=== PATIENT | female | born 1945 | race African-American/Black ===

== ENCOUNTER 2018-08-19 16:51 | Inpatient (IN) | payer OTHER ==
[~2018-08-19] VITALS: Ht 170.2 cm; Wt 69.9 kg
[2018-08-19 16:55] VITALS: BP_SYST 101
[2018-08-19 18:25] LABS: BILIRUBIN,URINE 2+ (NEGATIVE); BLOOD, URINE NEGATIVE (NEGATIVE); CLARITY/URINE SL CLOUDY (CLEAR); COLOR,URINE YELLOW (YELLOW); GLUCOSE,URINE NEGATIVE (NEGATIVE); KETONES,URINE 1+ (NEGATIVE); LEUKOCYTE ESTERASE ,URINE NEGATIVE (NEGATIVE); NITRITE, URINE NEGATIVE (NEGATIVE); PH,URINE 5.5 (5.0-8.0); PROTEIN URINE TRACE (NEGATIVE)
[2018-08-19 18:33] LABS: BACTERIA,URINE MODERATE /HPF (None Seen); RBC,URINE 0-3 /HPF (0-3)
[2018-08-19] MEDS ORDERED: DIPHENHYDRAMINE INJ 50 MG/ML VIAL ONE (18:44)
[2018-08-19] MEDS ORDERED: METOCLOPRAMIDE HCL 10 MG/2 ML VIAL ONE (18:45)
[2018-08-19] MEDS ORDERED: NACL 0.9% 1,000 ML IV ONE (18:48)
[2018-08-19] MEDS ORDERED: KCL 20 mEq in D5/0.45NS 1000mL 1,000 ML IV ONE (19:00)
[2018-08-19] MEDS ORDERED: METOCLOPRAMIDE HCL 10 MG/2 ML VIAL IVP ONE (19:00)
[2018-08-19] MEDS ORDERED: DIPHENHYDRAMINE INJ 50 MG/ML VIAL IVP ONE (19:15)
[2018-08-19 19:17] LABS: BASOPHILS # (AUTO) 0.1 K/uL (0.0-0.2); BASOPHILS % (AUTO) 0.9 % (0.0-2.0); EOSINOPHILS % (AUTO) 0.1 % (0.0-4.0); HEMATOCRIT 38.1 % (36-48); HEMOGLOBIN 11.8 g/dL (12.0-16.0); LYMPHOCYTES # (AUTO) 1.1 K/uL (1.0-5.5); LYMPHOCYTES % (AUTO) 15.8 % (20.5-51.5); MEAN CORPUSCULAR HEMOGLOBIN 25 pg (27-31); MEAN CORPUSCULAR HGB CONC 31 % (32-36); MEAN CORPUSCULAR VOLUME 81 fL (79.0-98.0); MONOCYTES # (AUTO) 0.9 K/uL (0.0-1.0); MONOCYTES % (AUTO) 12.1 % (1.7-9.3); NEUTROPHILS % (AUTO) 71.1 % (40.0-70.0); RED BLOOD CELL COUNT(AUTO) 4.73 MIL/uL (4.2-6.2); WHITE BLOOD COUNT (AUTO) 7.1 K/uL (4.8-10.8)
[2018-08-19 19:22] LABS: PLATELET COUNT (AUTO) 295 K/uL (130-430)
[2018-08-19] MEDS ORDERED: ALL300 PO (19:31)
[2018-08-19] MEDS ORDERED: LIP10 PO (19:31)
[2018-08-19] MEDS ORDERED: GLU500 PO (19:31)
[2018-08-19] MEDS ORDERED: METO-540 (19:31)
[2018-08-19] MEDS ORDERED: APIX5TAB4 PO (19:31)
[2018-08-19] MEDS ORDERED: LOSA25TA3 PO (19:31)
[2018-08-19] MEDS ORDERED: LINA5TAB2 PO (19:31)
[2018-08-19 19:32] LABS: ANION GAP 17 (5-15); CALCIUM 9.9 mg/dL (8.4-11.0); CHLORIDE 98 mmol/L (98-107); CREATININE 1.28 mg/dL (0.55-1.30); GLUCOSE 96 mg/dL (70-99); POTASSIUM 4.2 mmol/L (3.5-5.1); SODIUM SERUM 135 mmol/L (136-145); UREA NITROGEN, BLOOD 25 mg/dL (8-21)
[2018-08-19 19:37] LABS: ALANINE AMINOTRANSFERASE 66 U/L (12-78); ALBUMIN 2.7 g/dL (3.4-4.8); ASPARTATE AMINOTRANSFERASE 77 U/L (10-37); LIPASE 227 U/L (73-393)
[2018-08-19 19:41] LABS: INR 1.1 (0.8-1.2)
[2018-08-19 19:59] VITALS: BP_SYST 138
[2018-08-19 20:03] VITALS: BP_SYST 138
[2018-08-19] MEDS ORDERED: ONDANSETRON HCL 4 MG/2 ML VIAL IVP PRN (21:45)
[2018-08-19] MEDS ORDERED: INSULIN REGULAR, HUMAN 100 UNITS/ML, 10 ML VIAL (novoLIN R) SUBCUT PRN (22:00)
[2018-08-19] MEDS ORDERED: PIPERACILLIN/TAZOBACTAM 3.375 GM/VIAL (ZOSYN) IV ONE (22:55)
[2018-08-19 23:12] VITALS: BP_SYST 137
[2018-08-19] MEDS: D5/0.45 NS 1,000 ML IV SCH (23:30)
[2018-08-20] MEDS: PIPERACILLIN/TAZO 3.375/DEX-IS 50 ML IV SCH ×4 (00:08→17:56)
[2018-08-20 06:24] LABS: ANION GAP 12 (5-15); CALCIUM 9.2 mg/dL (8.4-11.0); CHLORIDE 102 mmol/L (98-107); CREATININE 1.06 mg/dL (0.55-1.30); GLUCOSE 107 mg/dL (70-99); POTASSIUM 3.7 mmol/L (3.5-5.1); SODIUM SERUM 138 mmol/L (136-145); UREA NITROGEN, BLOOD 20 mg/dL (8-21)
[2018-08-20 06:48] LABS: HEMOGLOBIN 10.7 g/dL (12.0-16.0); MEAN CORPUSCULAR HEMOGLOBIN 26 pg (27-31); MEAN CORPUSCULAR HGB CONC 32 % (32-36); MEAN CORPUSCULAR VOLUME 81 fL (79.0-98.0); PLATELET COUNT (AUTO) 243 K/uL (130-430); RED BLOOD CELL COUNT(AUTO) 4.22 MIL/uL (4.2-6.2); RED CELL DISTRIBUTION WIDTH 22.1 % (9.0-15.0); WHITE BLOOD COUNT (AUTO) 5.1 K/uL (4.8-10.8)
[2018-08-20 08:13] VITALS: BP_SYST 128
[2018-08-20 09:57] LABS: EOSINOPHILS % (MANUAL) 1 % (0-7); LYMPHOCYTES % (MANUAL) 33 % (20-46); MONOCYTES % (MANUAL) 7 % (0-11)
[2018-08-20 09:58] LABS: BASOPHILS % (MANUAL) 0 % (0-2)
[2018-08-20] MEDS: D5/0.45 NS 1,000 ML IV SCH (11:56)
[2018-08-20 12:37] VITALS: BP_SYST 117
[2018-08-20 16:50] VITALS: BP_SYST 117
[2018-08-20 19:25] VITALS: BP_SYST 104
[2018-08-20] MEDS: METOPROLOL TARTRATE 25 MG TABLET PO SCH (21:00)
[2018-08-20 23:57] VITALS: BP_SYST 133
[2018-08-21] MEDS: PIPERACILLIN/TAZO 3.375/DEX-IS 50 ML IV SCH ×3 (00:34→11:18)
[2018-08-21] MEDS: D5/0.45 NS 1,000 ML IV SCH (00:35)
[2018-08-21 06:59] LABS: INR 1.1 (0.8-1.2); PROTHROMBIN TIME 10.9 SECS (9.5-12.5)
[2018-08-21 07:05] LABS: HEMATOCRIT 32.2 % (36-48); HEMOGLOBIN 9.6 g/dL (12.0-16.0); MEAN CORPUSCULAR HEMOGLOBIN 24 pg (27-31); MEAN CORPUSCULAR HGB CONC 30 % (32-36); MEAN CORPUSCULAR VOLUME 81 fL (79.0-98.0); PLATELET COUNT (AUTO) 223 K/uL (130-430); RED BLOOD CELL COUNT(AUTO) 3.97 MIL/uL (4.2-6.2); RED CELL DISTRIBUTION WIDTH 22.1 % (9.0-15.0); WHITE BLOOD COUNT (AUTO) 4.4 K/uL (4.8-10.8)
[2018-08-21 07:18] LABS: ALANINE AMINOTRANSFERASE 44 U/L (12-78); ANION GAP 9 (5-15); ASPARTATE AMINOTRANSFERASE 54 U/L (10-37); CALCIUM 8.7 mg/dL (8.4-11.0); CHLORIDE 101 mmol/L (98-107); CREATININE 0.82 mg/dL (0.55-1.30); GLUCOSE 99 mg/dL (70-99); POTASSIUM 3.1 mmol/L (3.5-5.1); SODIUM SERUM 135 mmol/L (136-145); TOTAL BILIRUBIN 0.7 mg/dL (0.0-1.0); UREA NITROGEN, BLOOD 12 mg/dL (8-21)
[2018-08-21 08:00] VITALS: BP_SYST 115
[2018-08-21] MEDS ORDERED: POTASSIUM CHLORIDE 20 MEQ/PKT PACKET PO ONE (08:15)
[2018-08-21] MEDS ORDERED: ATORVASTATIN 10 MG TABLET PO SCH (09:00)
[2018-08-21] MEDS ORDERED: LOSARTAN POTASSIUM 25 MG TABLET PO SCH (09:00)
[2018-08-21] MEDS: METOPROLOL TARTRATE 25 MG TABLET PO SCH (09:00)
[2018-08-21] MEDS ORDERED: POTASSIUM CHLORIDE 40 MEQ in NS 250 ML IV ONE (09:15)
[2018-08-21 11:26] LABS: LYMPHOCYTES % (MANUAL) 30 % (20-46)
[2018-08-21 11:27] LABS: ATYPICAL LYMPHOCYTES % 1 % (0-0); BASOPHILS % (MANUAL) 0 % (0-2); EOSINOPHILS % (MANUAL) 2 % (0-7); MONOCYTES % (MANUAL) 21 % (0-11)
[2018-08-21 12:23] VITALS: BP_SYST 103
[2018-08-21] MEDS ORDERED: MEPERIDINE HCL/PF 100 MG/ML AMP ONE (12:30)
[2018-08-21] MEDS ORDERED: MIDAZOLAM HCL 5 MG/5 ML VIAL ONE ×2 (12:31)
[2018-08-21] MEDS ORDERED: MEPERIDINE HCL/PF 25 MG/ML DISP.SYRIN ONE (12:56)
[2018-08-21] MEDS ORDERED: PANTOPRAZOLE SODIUM 40 MG/VIAL (PROTONIX) IVP ONE (14:15)
[2018-08-21 15:00] VITALS: BP_SYST 134
[2018-08-21 16:45] VITALS: BP_SYST 134
[2018-08-21 17:12] VITALS: BP_SYST 134
[2018-08-22] MEDS ORDERED: PANTOPRAZOLE SODIUM 40 MG/VIAL (PROTONIX) IVP SCH (09:00)
== END 2018-08-21 19:00 | disposition home health service (06) | DRG 871 ==
LOC: SED 16:51 → STU 19:31 → SMU 08-20 11:29 → STU 08-20 11:39
PROVIDERS: ADMIT Internal Medicine; ATTEND Internal Medicine
PROC: 0DB68ZX Excision of Stomach, Via Natural or Artificial Opening Endoscopic, Diagnostic (ICD-10-PCS; 2018-08-21)
PROC: 0DB58ZX Excision of Esophagus, Via Natural or Artificial Opening Endoscopic, Diagnostic (ICD-10-PCS; 2018-08-21)
PROC: 0DB98ZX Excision of Duodenum, Via Natural or Artificial Opening Endoscopic, Diagnostic (ICD-10-PCS; principal; 2018-08-21 14:30)
DX: A41.9 Sepsis, unspecified organism (principal); E43 Unspecified severe protein-calorie malnutrition; K80.00 Calculus of gallbladder with acute cholecystitis without obstruction; I69.354 Hemiplegia and hemiparesis following cerebral infarction affecting left non-dominant side; E86.0 Dehydration; E11.9 Type 2 diabetes mellitus without complications; D64.9 Anemia, unspecified; I10 Essential (primary) hypertension; E78.5 Hyperlipidemia, unspecified; J44.9 Chronic obstructive pulmonary disease, unspecified; K21.0 Gastro-esophageal reflux disease with esophagitis; K29.70 Gastritis, unspecified, without bleeding; K29.80 Duodenitis without bleeding; I48.0 Paroxysmal atrial fibrillation; M10.9 Gout, unspecified; K59.00 Constipation, unspecified; Z79.899 Other long term (current) drug therapy; Z90.710 Acquired absence of both cervix and uterus; Z68.24 Body mass index [BMI] 24.0-24.9, adult; Z90.49 Acquired absence of other specified parts of digestive tract; Z87.891 Personal history of nicotine dependence; Z85.038 Personal history of other malignant neoplasm of large intestine
CPT/HCPCS: 36415; 43239; 71045; 78226; 80048; 80053; 81000-TC; 82962; 83605; 83690-TC; 84484; 85007; 85025; 85027; 85610-TC; 85730-TC; 86886; 86900; 86901; 87040-TC; 87081; 87086; 88305; 88312; 88313; 93306; 96361; 96374; 96375; 99285; A9537; J1200; J1815; J2175; J2250; J2405; J2543; J2765; J3480; J7050

== ENCOUNTER 2018-09-08 17:13 | Inpatient (IN) | payer OTHER ==
[~2018-09-08] VITALS: Ht 172.7 cm; Wt 68.9 kg
[~2018-09-08 17:13] MED LIST: ALL300 PO; APIX5TAB4 PO; GLU500 PO; LINA5TAB2 PO; LIP10 PO; LOSA25TA3 PO; METO-540
[2018-09-08 17:15] VITALS: BP_SYST 116
[2018-09-08] MEDS ORDERED: NACL 0.9% 1,000 ML IV ONE (17:30)
[2018-09-08] MEDS ORDERED: ONDANSETRON HCL 4 MG/2 ML VIAL IVP ONE (17:30)
[2018-09-08 18:23] LABS: BILIRUBIN,URINE 2+ (NEGATIVE); BLOOD, URINE 2+ (NEGATIVE); CLARITY/URINE HAZY (CLEAR); COLOR,URINE AMBER (YELLOW); GLUCOSE,URINE NEGATIVE (NEGATIVE); KETONES,URINE 1+ (NEGATIVE); LEUKOCYTE ESTERASE ,URINE NEGATIVE (NEGATIVE); NITRITE, URINE NEGATIVE (NEGATIVE); PH,URINE 5.5 (5.0-8.0); PROTEIN URINE TRACE (NEGATIVE)
[2018-09-08 18:23] LABS: ANION GAP 13 (5-15); CALCIUM 9.8 mg/dL (8.4-11.0); CHLORIDE 100 mmol/L (98-107); CREATININE 0.97 mg/dL (0.55-1.30); GLUCOSE 85 mg/dL (70-99); POTASSIUM 3.5 mmol/L (3.5-5.1); SODIUM SERUM 137 mmol/L (136-145); UREA NITROGEN, BLOOD 12 mg/dL (8-21)
[2018-09-08 18:29] LABS: ALANINE AMINOTRANSFERASE 19 U/L (12-78); ALBUMIN 2.8 g/dL (3.4-4.8); ASPARTATE AMINOTRANSFERASE 39 U/L (10-37); LIPASE 217 U/L (73-393); TOTAL BILIRUBIN 0.7 mg/dL (0.0-1.0)
[2018-09-08 18:38] LABS: BACTERIA,URINE MODERATE /HPF (None Seen); WBC,URINE 0-3 /HPF (0-3)
[2018-09-08 18:40] LABS: FINE GRANULAR CASTS,URINE 0-10 /LPF (None Seen); MUCUS,URINE 2+ /LPF (None Seen)
[2018-09-08 18:48] LABS: BASOPHILS # (AUTO) 0.2 K/uL (0.0-0.2); EOSINOPHILS % (AUTO) 0.5 % (0.0-4.0); HEMATOCRIT 39.3 % (36-48); HEMOGLOBIN 12.4 g/dL (12.0-16.0); LYMPHOCYTES # (AUTO) 2.1 K/uL (1.0-5.5); LYMPHOCYTES % (AUTO) 27.9 % (20.5-51.5); MEAN CORPUSCULAR HEMOGLOBIN 26 pg (27-31); MEAN CORPUSCULAR HGB CONC 32 % (32-36); MEAN CORPUSCULAR VOLUME 83 fL (79.0-98.0); MONOCYTES # (AUTO) 0.8 K/uL (0.0-1.0); MONOCYTES % (AUTO) 9.9 % (1.7-9.3); NEUTROPHILS # (AUTO) 4.6 K/uL (1.8-7.7); NEUTROPHILS % (AUTO) 59.7 % (40.0-70.0); PLATELET COUNT (AUTO) 288 K/uL (130-430); RED BLOOD CELL COUNT(AUTO) 4.76 MIL/uL (4.2-6.2); RED CELL DISTRIBUTION WIDTH 25.7 % (9.0-15.0); WHITE BLOOD COUNT (AUTO) 7.7 K/uL (4.8-10.8)
[2018-09-08 20:00] VITALS: BP_SYST 119
[2018-09-08 20:01] VITALS: BP_SYST 119
[2018-09-08 23:10] VITALS: BP_SYST 119
[2018-09-09 08:06] VITALS: BP_SYST 112
[2018-09-09] MEDS: ONDANSETRON HCL 4 MG/2 ML VIAL IVP PRN (11:17)
[2018-09-09] MEDS: POTASSIUM CHLORIDE 10 MEQ in NACL 0.9% 1,000 ML IV SCH (11:17)
[2018-09-09 12:56] VITALS: BP_SYST 123
[2018-09-09 16:57] VITALS: BP_SYST 114
[2018-09-09] MEDS: ENOXAPARIN SODIUM 30 MG/0.3 ML SYRINGE SUBCUT SCH (18:27)
[2018-09-09 20:00] VITALS: BP_SYST 123
[2018-09-09] MEDS: APIXABAN 2.5 MG TABLET PO SCH (20:05)
[2018-09-09] MEDS: INSULIN REGULAR, HUMAN 100 UNITS/ML, 10 ML VIAL (novoLIN R) SUBCUT PRN (20:06)
[2018-09-10] VITALS: BP_SYST 140
[2018-09-10 00:08] VITALS: BP_SYST 126
[2018-09-10] MEDS ORDERED: SIMETHICONE 40 MG/0.6 ML ML ONE (06:36)
[2018-09-10] MEDS: fentaNYL CITRATE/PF 100 MCG/2 ML AMP ONE ×3 (07:23→08:28)
[2018-09-10] MEDS: BENZOCAINE 20% 0.5mL UD SPRAY MM ONE ×2 (07:23→08:27)
[2018-09-10] MEDS: MIDAZOLAM HCL 5 MG/5 ML VIAL ONE ×3 (07:23→08:28)
[2018-09-10 08:51] VITALS: BP_SYST 121
[2018-09-10] MEDS ORDERED: ATORVASTATIN 10 MG TABLET PO SCH (09:00)
[2018-09-10] MEDS ORDERED: LOSARTAN POTASSIUM 25 MG TABLET PO SCH (09:00)
[2018-09-10] MEDS: ALLOPURINOL 300 MG TABLET (ZYLOPRIM) PO SCH (09:26)
[2018-09-10] MEDS: APIXABAN 2.5 MG TABLET PO SCH ×2 (09:28→20:20)
[2018-09-10 12:00] VITALS: BP_SYST 109
[2018-09-10] MEDS: POTASSIUM CHLORIDE 10 MEQ in NACL 0.9% 1,000 ML IV SCH ×2 (13:18→23:06)
[2018-09-10 16:00] VITALS: BP_SYST 101
[2018-09-10] MEDS: ENOXAPARIN SODIUM 30 MG/0.3 ML SYRINGE SUBCUT SCH (18:10)
[2018-09-10 20:00] VITALS: BP_SYST 125
[2018-09-10] MEDS: ONDANSETRON HCL 4 MG/2 ML VIAL IVP PRN (23:06)
[2018-09-11] VITALS: BP_SYST 140
[2018-09-11] MEDS: INSULIN REGULAR, HUMAN 100 UNITS/ML, 10 ML VIAL (novoLIN R) SUBCUT PRN (06:10)
[2018-09-11 06:54] LABS: HEMATOCRIT 34.5 % (36-48); HEMOGLOBIN 11.1 g/dL (12.0-16.0); MEAN CORPUSCULAR HEMOGLOBIN 27 pg (27-31); MEAN CORPUSCULAR HGB CONC 32 % (32-36); MEAN CORPUSCULAR VOLUME 83 fL (79.0-98.0); PLATELET COUNT (AUTO) 246 K/uL (130-430); RED BLOOD CELL COUNT(AUTO) 4.16 MIL/uL (4.2-6.2); RED CELL DISTRIBUTION WIDTH 25.1 % (9.0-15.0)
[2018-09-11] MEDS ORDERED: ACETAMINOPHEN 325 MG TABLET PO PRN (07:00)
[2018-09-11] MEDS ORDERED: BISACODYL 10 MG/SUPPOSITORY RC ONE (07:00)
[2018-09-11 07:05] LABS: ALANINE AMINOTRANSFERASE 13 U/L (12-78); ALBUMIN 2.1 g/dL (3.4-4.8); ANION GAP 10 (5-15); ASPARTATE AMINOTRANSFERASE 25 U/L (10-37); CALCIUM 9.1 mg/dL (8.4-11.0); CHLORIDE 106 mmol/L (98-107); CREATININE 0.57 mg/dL (0.55-1.30); GLUCOSE 73 mg/dL (70-99); POTASSIUM 3.7 mmol/L (3.5-5.1); SODIUM SERUM 138 mmol/L (136-145); TOTAL BILIRUBIN 0.6 mg/dL (0.0-1.0); UREA NITROGEN, BLOOD 5 mg/dL (8-21)
[2018-09-11] MEDS: MEGESTROL ACETATE 400 MG/10 ML UDC PO SCH ×2 (08:48→20:06)
[2018-09-11] MEDS: ALLOPURINOL 300 MG TABLET (ZYLOPRIM) PO SCH (08:48)
[2018-09-11] MEDS: METOCLOPRAMIDE HCL 10 MG TABLET PO SCH ×3 (08:48→17:21)
[2018-09-11] MEDS: PANTOPRAZOLE SODIUM 40 MG/VIAL (PROTONIX) IVP SCH (08:49)
[2018-09-11 12:20] LABS: BAND % (MANUAL) 2 % (0-6); BASOPHILS % (MANUAL) 0 % (0-2); EOSINOPHILS % (MANUAL) 0 % (0-7); LYMPHOCYTES % (MANUAL) 14 % (20-46); MONOCYTES % (MANUAL) 8 % (0-11)
[2018-09-11 12:37] VITALS: BP_SYST 136
[2018-09-11] MEDS: D5/0.45 NS 1,000 ML IV SCH (12:37)
[2018-09-11 16:58] VITALS: BP_SYST 118
[2018-09-11] MEDS: ENOXAPARIN SODIUM 30 MG/0.3 ML SYRINGE SUBCUT SCH (17:22)
[2018-09-11 20:00] VITALS: BP_SYST 128
[2018-09-11 23:49] VITALS: BP_SYST 124
[2018-09-12] MEDS: D5/0.45 NS 1,000 ML IV SCH (03:11)
[2018-09-12] MEDS: METOCLOPRAMIDE HCL 10 MG TABLET PO SCH ×3 (06:22→17:04)
[2018-09-12 08:00] VITALS: BP_SYST 140
[2018-09-12] MEDS: MEGESTROL ACETATE 400 MG/10 ML UDC PO SCH ×2 (09:00→20:50)
[2018-09-12] MEDS: PANTOPRAZOLE SODIUM 40 MG/VIAL (PROTONIX) IVP SCH (09:20)
[2018-09-12] MEDS: ALLOPURINOL 300 MG TABLET (ZYLOPRIM) PO SCH (09:20)
[2018-09-12 11:30] VITALS: BP_SYST 133
[2018-09-12 15:28] VITALS: BP_SYST 118
[2018-09-12] MEDS: ENOXAPARIN SODIUM 30 MG/0.3 ML SYRINGE SUBCUT SCH (17:05)
[2018-09-12 20:41] VITALS: BP_SYST 125
[2018-09-13] MEDS: D5/0.45 NS 1,000 ML IV SCH (00:01)
[2018-09-13 01:40] VITALS: BP_SYST 126
[2018-09-13] MEDS: METOCLOPRAMIDE HCL 10 MG TABLET PO SCH ×3 (06:12→17:27)
[2018-09-13 07:55] VITALS: BP_SYST 134
[2018-09-13] MEDS: PANTOPRAZOLE SODIUM 40 MG/VIAL (PROTONIX) IVP SCH (08:56)
[2018-09-13] MEDS: ALLOPURINOL 300 MG TABLET (ZYLOPRIM) PO SCH (08:56)
[2018-09-13] MEDS: MEGESTROL ACETATE 400 MG/10 ML UDC PO SCH (08:56)
[2018-09-13] MEDS: MEGESTROL ACETATE 40 MG TABLET PO SCH ×2 (09:13→09:15)
[2018-09-13] MEDS ORDERED: MEGESTROL ACETATE 40 MG TABLET PO ONE (11:30)
[2018-09-13 11:33] VITALS: BP_SYST 127
[2018-09-13 15:22] VITALS: BP_SYST 141
[2018-09-13] MEDS ORDERED: MEGE40TA PO (15:23)
[2018-09-13] MEDS ORDERED: PRO40 PO (15:25)
[2018-09-13] MEDS ORDERED: METO-290 PO (15:32)
[2018-09-13 16:21] VITALS: BP_SYST 142
[2018-09-13] MEDS ORDERED: MEGESTROL ACETATE 40 MG TABLET PO SCH (21:00)
== END 2018-09-13 17:50 | disposition home health service (06) | DRG 73 ==
LOC: SED 17:13 → SMU 19:42
PROVIDERS: ADMIT Internal Medicine; ATTEND Internal Medicine
PROC: 0DB78ZX Excision of Stomach, Pylorus, Via Natural or Artificial Opening Endoscopic, Diagnostic (ICD-10-PCS; 2018-09-10)
PROC: 0DB98ZX Excision of Duodenum, Via Natural or Artificial Opening Endoscopic, Diagnostic (ICD-10-PCS; principal; 2018-09-10 08:30)
DX: E11.43 Type 2 diabetes mellitus with diabetic autonomic (poly)neuropathy (principal); E43 Unspecified severe protein-calorie malnutrition; K29.70 Gastritis, unspecified, without bleeding; E78.5 Hyperlipidemia, unspecified; R62.7 Adult failure to thrive; K29.80 Duodenitis without bleeding; I10 Essential (primary) hypertension; K20.9 Esophagitis, unspecified; M10.9 Gout, unspecified; K31.84 Gastroparesis; R13.10 Dysphagia, unspecified; Z79.01 Long term (current) use of anticoagulants; Z86.73 Personal history of transient ischemic attack (TIA), and cerebral infarction without residual deficits; Z68.23 Body mass index [BMI] 23.0-23.9, adult; Z90.89 Acquired absence of other organs; Z79.899 Other long term (current) drug therapy; Z85.038 Personal history of other malignant neoplasm of large intestine; Z90.49 Acquired absence of other specified parts of digestive tract; Z79.4 Long term (current) use of insulin
CPT/HCPCS: 36415; 43239; 74018; 80053; 81000-TC; 82962; 83690-TC; 84550-TC; 85007; 85025; 85027; 87081; 87086; 88305; 88312; 88313; 96361; 96374; 97116-GP; 97530-GP; 99285; C9113; J1650; J1815; J2250; J2405; J3010; J3480; J7030; J8597

== ENCOUNTER 2018-10-20 14:12 | Inpatient (IN) | payer OTHER ==
[~2018-10-20] VITALS: Ht 175.3 cm; Wt 71.7 kg
[~2018-10-20 14:12] MED LIST changes: -ALL300 PO; -GLU500 PO; -LINA5TAB2 PO; -LIP10 PO; -LOSA25TA3 PO; +MEGE40TA PO; +METO-290 PO; -METO-540; +PRO40 PO
[2018-10-20 14:19] VITALS: BP_SYST 110
[2018-10-20] MEDS ORDERED: NACL 0.9% 1,000 ML IV ONE (14:45)
[2018-10-20 16:22] LABS: BASOPHILS % (AUTO) 0.3 % (0.0-2.0); EOSINOPHILS % (AUTO) 0.1 % (0.0-4.0); HEMATOCRIT 37.7 % (36-48); HEMOGLOBIN 12.5 g/dL (12.0-16.0); LYMPHOCYTES # (AUTO) 1.1 K/uL (1.0-5.5); LYMPHOCYTES % (AUTO) 15.2 % (20.5-51.5); MEAN CORPUSCULAR HEMOGLOBIN 28 pg (27-31); MEAN CORPUSCULAR HGB CONC 33 % (32-36); MEAN CORPUSCULAR VOLUME 85 fL (79.0-98.0); MONOCYTES # (AUTO) 0.5 K/uL (0.0-1.0); MONOCYTES % (AUTO) 7.1 % (1.7-9.3); NEUTROPHILS # (AUTO) 5.8 K/uL (1.8-7.7); PLATELET COUNT (AUTO) 292 K/uL (130-430); RED BLOOD CELL COUNT(AUTO) 4.41 MIL/uL (4.2-6.2); RED CELL DISTRIBUTION WIDTH 22.3 % (9.0-15.0); WHITE BLOOD COUNT (AUTO) 7.4 K/uL (4.8-10.8)
[2018-10-20 16:34] LABS: INR 1.2 (0.8-1.2); PROTHROMBIN TIME 11.7 SECS (9.5-12.5)
[2018-10-20 16:35] LABS: ANION GAP 11 (5-15); CALCIUM 9.7 mg/dL (8.4-11.0); CHLORIDE 101 mmol/L (98-107); CREATININE 1.04 mg/dL (0.55-1.30); GLUCOSE 134 mg/dL (70-99); NEUTROPHILS % (AUTO) 77.3 % (40.0-70.0); SODIUM SERUM 137 mmol/L (136-145); UREA NITROGEN, BLOOD 14 mg/dL (8-21)
[2018-10-20 16:39] LABS: ALANINE AMINOTRANSFERASE 14 U/L (12-78); ALBUMIN 2.5 g/dL (3.4-4.8); ASPARTATE AMINOTRANSFERASE 18 U/L (10-37)
[2018-10-20 16:51] LABS: POTASSIUM 2.9 mmol/L (3.5-5.1)
[2018-10-20] MEDS ORDERED: POTASSIUM CHLORIDE 40 MEQ in NS 250 ML IV ONE (17:00)
[2018-10-20] MEDS: NACL 0.9% 1,000 ML IV SCH (18:43)
[2018-10-20 20:03] VITALS: BP_SYST 118
[2018-10-20] MEDS: KCL 20 mEq in D5/0.45NS 1000mL 1,000 ML IV SCH (22:39)
[2018-10-20 23:55] VITALS: BP_SYST 123
[2018-10-21 01:24] VITALS: BP_SYST 112
[2018-10-21 05:53] LABS: BILIRUBIN,URINE 1+ (NEGATIVE); BLOOD, URINE NEGATIVE (NEGATIVE); CLARITY/URINE CLEAR (CLEAR); COLOR,URINE YELLOW (YELLOW); GLUCOSE,URINE NEGATIVE (NEGATIVE); KETONES,URINE NEGATIVE (NEGATIVE); LEUKOCYTE ESTERASE ,URINE TRACE (NEGATIVE); NITRITE, URINE NEGATIVE (NEGATIVE); PH,URINE 6.5 (5.0-8.0); PROTEIN URINE NEGATIVE (NEGATIVE)
[2018-10-21] MEDS: PANTOPRAZOLE SODIUM 40 MG TAB PO SCH (06:40)
[2018-10-21 07:12] LABS: BACTERIA,URINE FEW /HPF (None Seen); RBC,URINE 0-3 /HPF (0-3)
[2018-10-21 07:58] LABS: BASOPHILS % (AUTO) 0.6 % (0.0-2.0); EOSINOPHILS # (AUTO) 0.1 K/uL (0.0-0.4); EOSINOPHILS % (AUTO) 1.2 % (0.0-4.0); HEMATOCRIT 34.7 % (36-48); HEMOGLOBIN 11.6 g/dL (12.0-16.0); LYMPHOCYTES # (AUTO) 2.1 K/uL (1.0-5.5); LYMPHOCYTES % (AUTO) 28.5 % (20.5-51.5); MEAN CORPUSCULAR HEMOGLOBIN 29 pg (27-31); MEAN CORPUSCULAR HGB CONC 34 % (32-36); MEAN CORPUSCULAR VOLUME 87 fL (79.0-98.0); MONOCYTES # (AUTO) 0.8 K/uL (0.0-1.0); MONOCYTES % (AUTO) 10.8 % (1.7-9.3); NEUTROPHILS # (AUTO) 4.2 K/uL (1.8-7.7); NEUTROPHILS % (AUTO) 58.9 % (40.0-70.0); PLATELET COUNT (AUTO) 288 K/uL (130-430); RED BLOOD CELL COUNT(AUTO) 3.99 MIL/uL (4.2-6.2); RED CELL DISTRIBUTION WIDTH 22.3 % (9.0-15.0); WHITE BLOOD COUNT (AUTO) 7.2 K/uL (4.8-10.8)
[2018-10-21 08:00] VITALS: BP_SYST 140
[2018-10-21 08:48] LABS: CALCIUM 8.5 mg/dL (8.4-11.0); CREATININE 0.69 mg/dL (0.55-1.30); GLUCOSE 93 mg/dL (70-99); PHOSPHORUS 1.9 mg/dL (2.7-4.5); UREA NITROGEN, BLOOD 9 mg/dL (8-21)
[2018-10-21] MEDS: KCL 20 mEq in D5/0.45NS 1000mL 1,000 ML IV SCH ×2 (08:51→20:35)
[2018-10-21] MEDS: NACL 0.9% 1,000 ML IV SCH ×2 (08:51→14:00)
[2018-10-21] MEDS: MEGESTROL ACETATE 400 MG/10 ML UDC PO SCH ×2 (08:51→21:18)
[2018-10-21 09:11] LABS: ANION GAP 12 (5-15); CHLORIDE 110 mmol/L (98-107); SODIUM SERUM 141 mmol/L (136-145)
[2018-10-21 09:26] LABS: POTASSIUM 2.6 mmol/L (3.5-5.1)
[2018-10-21] MEDS ORDERED: POTASSIUM CHLORIDE 20 MEQ TAB.PRT.SR PO ONE (10:00)
[2018-10-21] MEDS: POTASSIUM CHLORIDE 40 MEQ in NS 250 ML IV SCH ×2 (11:17→20:35)
[2018-10-21 12:00] VITALS: BP_SYST 138
[2018-10-21 16:08] VITALS: BP_SYST 142
[2018-10-21] MEDS ORDERED: MAGNESIUM SULFATE 1 GM/2 ML VIAL IVP ONE (18:30)
[2018-10-21 20:00] VITALS: BP_SYST 124
[2018-10-21] MEDS: MIRTAZAPINE 15 MG TABLET PO SCH (21:18)
[2018-10-21] MEDS ORDERED: MAGNESIUM SULFATE 50 ML IV ONE (22:09)
[2018-10-22 00:41] VITALS: BP_SYST 144
[2018-10-22] MEDS: MAGNESIUM SULFATE 50 ML IV SCH ×2 (00:49→01:34)
[2018-10-22] MEDS: PANTOPRAZOLE SODIUM 40 MG TAB PO SCH (06:10)
[2018-10-22 07:30] LABS: ANION GAP 7 (5-15); CALCIUM 8.9 mg/dL (8.4-11.0); CHLORIDE 112 mmol/L (98-107); CREATININE 0.72 mg/dL (0.55-1.30); GLUCOSE 95 mg/dL (70-99); POTASSIUM 4.7 mmol/L (3.5-5.1); SODIUM SERUM 139 mmol/L (136-145); UREA NITROGEN, BLOOD 5 mg/dL (8-21)
[2018-10-22 07:57] LABS: BASOPHILS % (AUTO) 0.5 % (0.0-2.0); EOSINOPHILS # (AUTO) 0.2 K/uL (0.0-0.4); EOSINOPHILS % (AUTO) 2.3 % (0.0-4.0); HEMATOCRIT 33.9 % (36-48); HEMOGLOBIN 11.5 g/dL (12.0-16.0); LYMPHOCYTES # (AUTO) 1.9 K/uL (1.0-5.5); LYMPHOCYTES % (AUTO) 28.8 % (20.5-51.5); MEAN CORPUSCULAR HEMOGLOBIN 30 pg (27-31); MEAN CORPUSCULAR HGB CONC 34 % (32-36); MONOCYTES # (AUTO) 0.7 K/uL (0.0-1.0); NEUTROPHILS # (AUTO) 3.9 K/uL (1.8-7.7); NEUTROPHILS % (AUTO) 57.4 % (40.0-70.0); RED BLOOD CELL COUNT(AUTO) 3.81 MIL/uL (4.2-6.2); RED CELL DISTRIBUTION WIDTH 22.4 % (9.0-15.0); WHITE BLOOD COUNT (AUTO) 6.7 K/uL (4.8-10.8)
[2018-10-22 08:00] VITALS: BP_SYST 146
[2018-10-22 08:10] LABS: MEAN CORPUSCULAR VOLUME 89 fL (79.0-98.0)
[2018-10-22] MEDS: MEGESTROL ACETATE 400 MG/10 ML UDC PO SCH ×2 (08:37→21:03)
[2018-10-22] MEDS: KCL 20 mEq in D5/0.45NS 1000mL 1,000 ML IV SCH ×2 (09:30→14:59)
[2018-10-22 09:40] LABS: PLATELET COUNT (AUTO) 301 K/uL (130-430)
[2018-10-22 12:00] VITALS: BP_SYST 122
[2018-10-22 16:17] VITALS: BP_SYST 129
[2018-10-22 20:00] VITALS: BP_SYST 123
[2018-10-22] MEDS: MIRTAZAPINE 15 MG TABLET PO SCH (21:03)
[2018-10-23 01:17] VITALS: BP_SYST 133
[2018-10-23] MEDS: KCL 20 mEq in D5/0.45NS 1000mL 1,000 ML IV SCH ×2 (03:26→16:27)
[2018-10-23] MEDS: PANTOPRAZOLE SODIUM 40 MG TAB PO SCH (07:00)
[2018-10-23 08:00] VITALS: BP_SYST 130
[2018-10-23] MEDS: MEGESTROL ACETATE 400 MG/10 ML UDC PO SCH ×2 (08:40→21:24)
[2018-10-23 12:00] VITALS: BP_SYST 149
[2018-10-23 16:00] VITALS: BP_SYST 134
[2018-10-23 19:34] VITALS: BP_SYST 144
[2018-10-23] MEDS: MIRTAZAPINE 15 MG TABLET PO SCH (21:24)
[2018-10-24 00:43] VITALS: BP_SYST 148
[2018-10-24] MEDS: PANTOPRAZOLE SODIUM 40 MG TAB PO SCH (06:21)
[2018-10-24] MEDS: MEGESTROL ACETATE 400 MG/10 ML UDC PO SCH ×2 (09:00→22:00)
[2018-10-24] MEDS: KCL 20 mEq in D5/0.45NS 1000mL 1,000 ML IV SCH (09:10)
[2018-10-24 09:49] VITALS: BP_SYST 149
[2018-10-24] MEDS ORDERED: BENZOCAINE 20% 0.5mL UD SPRAY MM ONE (11:27)
[2018-10-24] MEDS ORDERED: CEFAZOLIN 1 GM IVPB PREMIX 50 ML IV ONE (11:30)
[2018-10-24 12:30] VITALS: BP_SYST 138
[2018-10-24] MEDS: fentaNYL CITRATE/PF 100 MCG/2 ML AMP ONE ×4 (13:55→14:06)
[2018-10-24] MEDS: MIDAZOLAM HCL 5 MG/5 ML VIAL ONE ×3 (13:55→14:00)
[2018-10-24 16:18] VITALS: BP_SYST 132
[2018-10-24 20:00] VITALS: BP_SYST 147
[2018-10-24] MEDS: MIRTAZAPINE 15 MG TABLET PO SCH (22:00)
[2018-10-25] MEDS: KCL 20 mEq in D5/0.45NS 1000mL 1,000 ML IV SCH (04:31)
[2018-10-25 04:32] VITALS: BP_SYST 139
[2018-10-25] MEDS: PANTOPRAZOLE SODIUM 40 MG TAB PO SCH (06:37)
[2018-10-25 07:19] LABS: BASOPHILS % (AUTO) 0.1 % (0.0-2.0); EOSINOPHILS % (AUTO) 0.1 % (0.0-4.0); HEMATOCRIT 41.7 % (36-48); HEMOGLOBIN 12.9 g/dL (12.0-16.0); LYMPHOCYTES # (AUTO) 2.1 K/uL (1.0-5.5); LYMPHOCYTES % (AUTO) 16.8 % (20.5-51.5); MEAN CORPUSCULAR HEMOGLOBIN 28 pg (27-31); MEAN CORPUSCULAR HGB CONC 31 % (32-36); MEAN CORPUSCULAR VOLUME 91 fL (79.0-98.0); MONOCYTES # (AUTO) 0.9 K/uL (0.0-1.0); MONOCYTES % (AUTO) 7.3 % (1.7-9.3); NEUTROPHILS # (AUTO) 9.5 K/uL (1.8-7.7); NEUTROPHILS % (AUTO) 75.7 % (40.0-70.0); PLATELET COUNT (AUTO) 321 K/uL (130-430); WHITE BLOOD COUNT (AUTO) 12.5 K/uL (4.8-10.8)
[2018-10-25 07:55] LABS: ANION GAP 11 (5-15); CALCIUM 9.7 mg/dL (8.4-11.0); CHLORIDE 103 mmol/L (98-107); CREATININE 0.79 mg/dL (0.55-1.30); GLUCOSE 136 mg/dL (70-99); PHOSPHORUS 2.8 mg/dL (2.7-4.5); SODIUM SERUM 133 mmol/L (136-145); UREA NITROGEN, BLOOD 5 mg/dL (8-21)
[2018-10-25 08:00] VITALS: BP_SYST 142
[2018-10-25] MEDS: MEGESTROL ACETATE 400 MG/10 ML UDC PO SCH ×2 (09:33→21:38)
[2018-10-25 12:28] VITALS: BP_SYST 144
[2018-10-25 16:00] VITALS: BP_SYST 117
[2018-10-25] MEDS ORDERED: DILTIAZEM HCL 25 MG/5 ML VIAL IVP ONE (16:45)
[2018-10-25 20:25] VITALS: BP_SYST 146
[2018-10-25] MEDS: MIRTAZAPINE 15 MG TABLET PO SCH (21:38)
[2018-10-25 22:00] VITALS: BP_SYST 145
[2018-10-25] MEDS: cefTRIAXone 1 GM in D5W 50 ML IV SCH (23:00)
[2018-10-25] MEDS ORDERED: cefTRIAXone 1 GM IVPB PREMIX 50 ML IV ONE (23:13)
[2018-10-26] VITALS (7 sets, daily range): BP systolic 123–167
[2018-10-26 00:26] LABS: BILIRUBIN,URINE NEGATIVE (NEGATIVE); BLOOD, URINE NEGATIVE (NEGATIVE); CLARITY/URINE CLEAR (CLEAR); COLOR,URINE YELLOW (YELLOW); GLUCOSE,URINE NEGATIVE (NEGATIVE); KETONES,URINE NEGATIVE (NEGATIVE); LEUKOCYTE ESTERASE ,URINE 2+ (NEGATIVE); NITRITE, URINE NEGATIVE (NEGATIVE); PH,URINE 6.5 (5.0-8.0); PROTEIN URINE NEGATIVE (NEGATIVE)
[2018-10-26] MEDS: KCL 20 mEq in D5/0.45NS 1000mL 1,000 ML IV SCH ×3 (00:41→17:41)
[2018-10-26 00:42] LABS: RBC,URINE 0-3 /HPF (0-3)
[2018-10-26 00:43] LABS: BACTERIA,URINE FEW /HPF (None Seen)
[2018-10-26] MEDS ORDERED: ACETAMINOPHEN 325 MG TABLET GT PRN (04:00)
[2018-10-26] MEDS: PANTOPRAZOLE SODIUM 40 MG TAB PO SCH (06:21)
[2018-10-26] MEDS: MEGESTROL ACETATE 400 MG/10 ML UDC PO SCH ×2 (09:02→21:56)
[2018-10-26] MEDS ORDERED: METOPROLOL SUCCINATE 25 MG TAB.SR.24H (TOPROL XL) PO ONE (11:00)
[2018-10-26 11:07] LABS: MEAN CORPUSCULAR HEMOGLOBIN 30 pg (27-31); PLATELET COUNT (AUTO) 288 K/uL (130-430); RED CELL DISTRIBUTION WIDTH 21.4 % (9.0-15.0)
[2018-10-26 11:18] LABS: WHITE BLOOD COUNT (AUTO) 13.1 K/uL (4.8-10.8)
[2018-10-26 11:19] LABS: HEMATOCRIT 35.7 % (36-48); HEMOGLOBIN 11.8 g/dL (12.0-16.0); MEAN CORPUSCULAR HGB CONC 33 % (32-36); MEAN CORPUSCULAR VOLUME 92 fL (79.0-98.0); RED BLOOD CELL COUNT(AUTO) 3.99 MIL/uL (4.2-6.2)
[2018-10-26 11:25] LABS: ALANINE AMINOTRANSFERASE 9 U/L (12-78); ALBUMIN 1.9 g/dL (3.4-4.8); ANION GAP 8 (5-15); ASPARTATE AMINOTRANSFERASE 13 U/L (10-37); CALCIUM 9.1 mg/dL (8.4-11.0); CHLORIDE 102 mmol/L (98-107); CREATININE 0.77 mg/dL (0.55-1.30); GLUCOSE 112 mg/dL (70-99); POTASSIUM 5.1 mmol/L (3.5-5.1); SODIUM SERUM 132 mmol/L (136-145); TOTAL BILIRUBIN 0.5 mg/dL (0.0-1.0); UREA NITROGEN, BLOOD 10 mg/dL (8-21)
[2018-10-26 14:33] LABS: ATYPICAL LYMPHOCYTES % 1 % (0-0); BASOPHILS % (MANUAL) 0 % (0-2); EOSINOPHILS % (MANUAL) 1 % (0-7); LYMPHOCYTES % (MANUAL) 24 % (20-46); MONOCYTES % (MANUAL) 4 % (0-11)
[2018-10-26] MEDS ORDERED: ONDANSETRON HCL 4 MG/2 ML VIAL IVP PRN (21:15)
[2018-10-26] MEDS: MIRTAZAPINE 15 MG TABLET PO SCH (21:45)
[2018-10-26] MEDS: APIXABAN 2.5 MG TABLET PO SCH (21:45)
[2018-10-26] MEDS: D5/0.45 NS 1,000 ML IV SCH (21:46)
[2018-10-26] MEDS: cefTRIAXone 1 GM in D5W 50 ML IV SCH (22:57)
[2018-10-27] MEDS: PANTOPRAZOLE SODIUM 40 MG TAB PO SCH (06:21)
[2018-10-27 08:00] VITALS: BP_SYST 134
[2018-10-27] MEDS ORDERED: METOPROLOL SUCCINATE 25 MG TAB.SR.24H (TOPROL XL) PO SCH (09:00)
[2018-10-27] MEDS: MEGESTROL ACETATE 400 MG/10 ML UDC PO SCH (09:19)
[2018-10-27] MEDS: APIXABAN 2.5 MG TABLET PO SCH (09:20)
[2018-10-27] MEDS: D5/0.45 NS 1,000 ML IV SCH (10:50)
[2018-10-27 12:43] VITALS: BP_SYST 139
[2018-10-27 16:23] VITALS: BP_SYST 129
[2018-10-27 16:33] VITALS: BP_SYST 129
== END 2018-10-27 18:55 | DRG 70 ==
LOC: SED 14:12 → SMU 17:24 → STU 10-25 17:05
PROVIDERS: ADMIT Family Medicine; ATTEND Family Medicine
PROC: 0DH63UZ Insertion of Feeding Device into Stomach, Percutaneous Approach (ICD-10-PCS; principal; 2018-10-24 13:00)
DX: G93.41 Metabolic encephalopathy (principal); E43 Unspecified severe protein-calorie malnutrition; N39.0 Urinary tract infection, site not specified; I69.354 Hemiplegia and hemiparesis following cerebral infarction affecting left non-dominant side; E86.0 Dehydration; E87.6 Hypokalemia; E11.9 Type 2 diabetes mellitus without complications; F03.90 Unspecified dementia, unspecified severity, without behavioral disturbance, psychotic disturbance, mood disturbance, and anxiety; I10 Essential (primary) hypertension; I48.0 Paroxysmal atrial fibrillation; R62.7 Adult failure to thrive; F32.9 Major depressive disorder, single episode, unspecified; K59.00 Constipation, unspecified; Z87.891 Personal history of nicotine dependence; Z90.49 Acquired absence of other specified parts of digestive tract; Z90.710 Acquired absence of both cervix and uterus; Z68.23 Body mass index [BMI] 23.0-23.9, adult; Z91.041 Radiographic dye allergy status; Z74.01 Bed confinement status
CPT/HCPCS: 36415; 71045; 80048; 80053; 81000-TC; 83605; 83735-TC; 83880; 84100-TC; 84484; 85007; 85025; 85027; 85610-TC; 85730-TC; 87040-TC; 87086; 93005; 93306; 96361; 96365; 96366; 99285; G0378; J0690; J0696; J2250; J3010; J3475; J3480; J3490; J7030; J7050; J7060

== ENCOUNTER 2019-03-20 17:24 | Emergency (ER) | payer OTHER ==
[~2019-03-20] VITALS: Ht 172.7 cm; Wt 72.6 kg
[~2019-03-20 17:24] MED LIST changes: -METO-290 PO
[2019-03-20 17:25] VITALS: BP_SYST 149
[2019-03-20] MEDS ORDERED: NACL 0.9% 1,000 ML IV ONE (18:00)
[2019-03-20] MEDS ORDERED: cefTRIAXone 1 GM in D5W 50 ML IV ONE (18:45)
[2019-03-20 18:46] LABS: BASOPHILS # (AUTO) 0.1 K/uL (0.0-0.2); BASOPHILS % (AUTO) 0.7 % (0.0-2.0); EOSINOPHILS # (AUTO) 0.1 K/uL (0.0-0.4); EOSINOPHILS % (AUTO) 0.7 % (0.0-4.0); HEMATOCRIT 37.5 % (36-48); HEMOGLOBIN 12.3 g/dL (12.0-16.0); LYMPHOCYTES # (AUTO) 2.6 K/uL (1.0-5.5); LYMPHOCYTES % (AUTO) 25.5 % (20.5-51.5); MEAN CORPUSCULAR HEMOGLOBIN 28 pg (27-31); MEAN CORPUSCULAR HGB CONC 33 % (32-36); MEAN CORPUSCULAR VOLUME 85 fL (79.0-98.0); MONOCYTES # (AUTO) 0.8 K/uL (0.0-1.0); NEUTROPHILS # (AUTO) 6.7 K/uL (1.8-7.7); NEUTROPHILS % (AUTO) 65.1 % (40.0-70.0); PLATELET COUNT (AUTO) 248 K/uL (130-430); RED BLOOD CELL COUNT(AUTO) 4.42 MIL/uL (4.2-6.2); RED CELL DISTRIBUTION WIDTH 16.3 % (9.0-15.0); WHITE BLOOD COUNT (AUTO) 10.3 K/uL (4.8-10.8)
[2019-03-20 18:57] LABS: ANION GAP 7 (5-15); CALCIUM 10.3 mg/dL (8.4-11.0); CHLORIDE 107 mmol/L (98-107); CREATININE 0.96 mg/dL (0.55-1.30); GLUCOSE 130 mg/dL (70-99); POTASSIUM 3.8 mmol/L (3.5-5.1); SODIUM SERUM 140 mmol/L (136-145); UREA NITROGEN, BLOOD 16 mg/dL (8-21)
[2019-03-20] MEDS ORDERED: cefTRIAXone 1 GM VIAL ONE (18:58)
[2019-03-20 19:03] LABS: ALANINE AMINOTRANSFERASE 13 U/L (12-78); ASPARTATE AMINOTRANSFERASE 12 U/L (10-37); TOTAL BILIRUBIN 0.4 mg/dL (0.0-1.0)
[2019-03-20 19:03] LABS: INR 0.9 (0.8-1.2); PROTHROMBIN TIME 9.7 SECS (9.5-12.5)
[2019-03-20 19:46] LABS: BILIRUBIN,URINE NEGATIVE (NEGATIVE); BLOOD, URINE 3+ (NEGATIVE); CLARITY/URINE HAZY (CLEAR); COLOR,URINE YELLOW (YELLOW); GLUCOSE,URINE NEGATIVE (NEGATIVE); KETONES,URINE NEGATIVE (NEGATIVE); LEUKOCYTE ESTERASE ,URINE 3+ (NEGATIVE); NITRITE, URINE POSITIVE (NEGATIVE); PROTEIN URINE TRACE (NEGATIVE)
[2019-03-20 19:54] LABS: BACTERIA,URINE MANY /HPF (None Seen); MUCUS,URINE None Seen /LPF (None Seen); RBC,URINE 20-50 /HPF (0-3); WBC,URINE 50-80 /HPF (0-3)
[2019-03-20 22:03] VITALS: BP_SYST 153
== END 2019-03-20 22:05 | disposition home or self-care (01) ==
LOC: SED 17:24
DX: N39.0 Urinary tract infection, site not specified (principal)
CPT/HCPCS: 36415; 80053; 81000; 83605; 85025; 85610; 85730; 87040; 87086; 87186; 96365; 99283; J0696; J7030

== ENCOUNTER 2024-05-01 09:17 | Inpatient (IN) | payer OTHER ==
[2024-05-01] VITALS (24 sets, daily range): BP systolic 55–151; PULSE 117–148; RESP 19–43; TEMP 97.5–100.9; O2SAT 73–100
[~2024-05-01] VITALS: Ht 152.4 cm; Wt 65.3 kg
[2024-05-01] MEDS ORDERED: VECURONIUM BROMIDE 10 MG/VIAL (NORCURON) ONE (09:45)
[2024-05-01 10:22] LABS: ABG O2 SAT% ESTIMATE 99.1 % (94.0-100.0); BLOOD GAS BASE EXCESS -0.8 mmol/L (-3.0-3.0); BLOOD GAS HCO3 24.4 mmol/L (21.0-27.0); BLOOD GAS PCO2 42.6 mmHg (35.0-45.0); BLOOD GAS PH 7.376 (7.350-7.450); BLOOD GAS PO2 172.5 mmHg (75.0-100.0)
[2024-05-01 10:32] LABS: ALLEN'S TEST POSITIVE (P)
[2024-05-01 10:42] LABS: BASOPHILS # (AUTO) 0.1 K/uL (0.0-0.2); BASOPHILS % (AUTO) 0.4 % (0.0-2.0); EOSINOPHILS % (AUTO) 0.2 % (0.0-4.0); HEMATOCRIT 35.4 % (36-48); HEMOGLOBIN 11.2 g/dL (12.0-16.0); LYMPHOCYTES # (AUTO) 0.8 K/uL (1.0-5.5); MEAN CORPUSCULAR HEMOGLOBIN 27 pg (27-31); MEAN CORPUSCULAR HGB CONC 32 % (32-36); MEAN CORPUSCULAR VOLUME 85 fL (79.0-98.0); MONOCYTES % (AUTO) 5.8 % (1.7-9.3); NEUTROPHILS # (AUTO) 14.8 K/uL (1.8-7.7); NEUTROPHILS % (AUTO) 88.6 % (40.0-70.0); PLATELET COUNT (AUTO) 490 K/uL (130-430); RED BLOOD CELL COUNT(AUTO) 4.18 MIL/uL (4.2-6.2); RED CELL DISTRIBUTION WIDTH 17.1 % (9.0-15.0); WHITE BLOOD COUNT (AUTO) 16.6 K/uL (4.8-10.8)
[2024-05-01 10:57] LABS: PROTHROMBIN TIME 10.3 SECS (9.5-12.5)
[2024-05-01 10:58] LABS: ALANINE AMINOTRANSFERASE 30 U/L (12-78); ALBUMIN 2.5 g/dL (3.4-4.8); ANION GAP 9 (5-15); ASPARTATE AMINOTRANSFERASE 41 U/L (10-37); CALCIUM 9.4 mg/dL (8.4-11.0); CARBON DIOXIDE 26 mmol/L (23-29); CHLORIDE 113 mmol/L (98-107); CREATININE 1.14 mg/dL (0.55-1.30); GLUCOSE 229 mg/dL (74-106); POTASSIUM 4.2 mmol/L (3.5-5.1); SODIUM SERUM 148 mmol/L (136-145); TOTAL BILIRUBIN 0.5 mg/dL (0.0-1.0); TOTAL PROTEIN, SERUM 7.1 g/dL (6.4-8.3); UREA NITROGEN, BLOOD 34 mg/dL (8-21)
[2024-05-01] MEDS ORDERED: METO25CA GT (11:04)
[2024-05-01] MEDS ORDERED: METF-379 GT (11:04)
[2024-05-01] MEDS ORDERED: APIX5TAB GT (11:04)
[2024-05-01] MEDS ORDERED: SER25 GT (11:04)
[2024-05-01] MEDS ORDERED: LOSA50TA28 GT (11:04)
[2024-05-01] MEDS ORDERED: SENN8.6T19 GT (11:04)
[2024-05-01] MEDS ORDERED: ACET325C6 GT (11:04)
[2024-05-01] MEDS ORDERED: ATOR40TA68 GT (11:04)
[2024-05-01 11:11] LABS: BILIRUBIN,DIRECT 0.1 mg/dL (0.0-0.3)
[2024-05-01] MEDS: AZITHROMYCIN 500 MG in NS 250 ML IV SCH (11:20)
[2024-05-01] MEDS ORDERED: cefTRIAXone 2 GM VIAL ONE (11:23)
[2024-05-01] MEDS ORDERED: AZITHROMYCIN 500 MG/VIAL (ZITHROMAX) IV ONE (11:23)
[2024-05-01] MEDS: AZITHROMYCIN 500 MG in NS 250 ML IV ONE (11:43)
[2024-05-01] MEDS: NACL 0.9% 1,000 ML IV ONE (11:55)
[2024-05-01] MEDS ORDERED: PROPOFOL DRIP 100 ML IV PRN (14:15)
[2024-05-01] MEDS ORDERED: NOREPINEPHRINE BITARTRATE 4 MG in NS 246 ML IV PRN (14:15)
[2024-05-01] MEDS: PROPOFOL DRIP 100 ML IV PRN (14:58)
[2024-05-01 15:32] LABS: PROTHROMBIN TIME 10.7 SECS (9.5-12.5)
[2024-05-01] MEDS: D5/0.45 NS 1,000 ML IV SCH (15:54)
[2024-05-01] MEDS: PIPERACILLIN/TAZO 3.375 GM in D5W 50 ML IV SCH (16:44)
[2024-05-01] MEDS: NOREPINEPHRINE BITARTRATE 4 MG in NS 246 ML IV PRN (16:46)
[2024-05-01] MEDS ORDERED: ACETAMINOPHEN 650 MG/20.3 ML UDC GT PRN (22:15)
[2024-05-01] MEDS: NS 500 ML IV ONE (22:38)
[2024-05-02] VITALS (53 sets, daily range): BP systolic 43–155; PULSE 50–151; RESP 23–42; TEMP 97.8–100.7; O2SAT 50–100
[2024-05-02] MEDS ORDERED: NOREPINEPHRINE 4 MG/4 ML VIAL IV ONE (04:10)
[2024-05-02] MEDS: NOREPINEPHRINE BITARTRATE 8 MG in NS 242 ML IV PRN (04:36)
[2024-05-02] MEDS: INSULIN REGULAR, HUMAN 100 UNITS/ML, 3 ML VIAL (humuLIN R) SUBCUT PRN (05:54)
[2024-05-02 09:24] LABS: ABG O2 SAT% ESTIMATE 95.1 % (94.0-100.0); BLOOD GAS BASE EXCESS -23.6 mmol/L (-3.0-3.0); BLOOD GAS PCO2 26.9 mmHg (35.0-45.0); BLOOD GAS PO2 109.4 mmHg (75.0-100.0)
[2024-05-02 09:28] LABS: BLOOD GAS HCO3 6.4 mmol/L (21.0-27.0); BLOOD GAS PH 6.997 (7.350-7.450)
[2024-05-02] MEDS ORDERED: SODIUM BICARBONATE 8.4% JECT 50 MEQ/50 ML SYRINGE ONE (10:11)
[2024-05-02] MEDS: SODIUM BICARBONATE 8.4% VIAL 50 MEQ/50 ML VIAL INJ ONE (10:18)
[2024-05-02] MEDS: AZITHROMYCIN 250 MG in NS 250 ML IV SCH (11:45)
[2024-05-02] MEDS ORDERED: LORazepam 2 MG/ML VIAL IVP PRN (11:45)
[2024-05-02] MEDS ORDERED: ONDANSETRON HCL 4 MG/2 ML VIAL IVP PRN (11:45)
[2024-05-02] MEDS ORDERED: SENNOSIDES 8.6 MG TABLET GT PRN (11:45)
[2024-05-02] MEDS ORDERED: HYDROcodone/ACETAMIN 5-325 MG TAB (NORCO/ VICODIN) GT PRN (11:45)
[2024-05-02] MEDS ORDERED: ACETAMINOPHEN 325 MG TABLET GT PRN (11:45)
[2024-05-02] MEDS ORDERED: HYDROcodone/ACETAMIN 10-325 MG TAB GT PRN (11:45)
[2024-05-02] MEDS ORDERED: NALOXONE HCL 0.4 MG/ML AMP (NARCAN) IVP PRN ×2 (11:45)
[2024-05-02] MEDS: SODIUM BICARBONATE 8.4% JECT 150 MEQ in D5W 1,000 ML IVP SCH (12:06)
[2024-05-02] MEDS: PHENYLEPHRINE HCL 100 MG in NS 240 ML IV PRN (12:12)
[2024-05-02] MEDS ORDERED: METO25TA6 PO (12:14)
[2024-05-02] MEDS: NACL 0.9% 1,000 ML IV ONE ×2 (12:30→15:55)
[2024-05-02] MEDS ORDERED: APIXABAN 2.5 MG TABLET GT ONE (13:00)
[2024-05-02] MEDS ORDERED: DEXTROSE 50% JECT 50 ML DISP.SYRIN ONE (13:27)
[2024-05-02] MEDS: VASOPRESSIN 40 UNITS in NS 38 ML IV PRN (15:22)
[2024-05-02] MEDS: HYDROCORTISONE SOD SUCC 100 MG/2 ML VIAL IVP ONE (15:54)
[2024-05-02 16:42] LABS: BLOOD GAS BASE EXCESS -34.1 mmol/L (-3.0-3.0)
[2024-05-02 16:48] LABS: BLOOD GAS PCO2 94.9 mmHg (35.0-45.0)
[2024-05-02 16:49] LABS: ABG O2 SAT% ESTIMATE 70.6 % (94.0-100.0); BLOOD GAS HCO3 7.5 mmol/L (21.0-27.0); BLOOD GAS PH 6.515 (7.350-7.450)
[2024-05-02 17:12] LABS: BLOOD GAS PO2 88.9 mmHg (75.0-100.0)
[2024-05-02] MEDS: PHENYLEPHRINE HCL 10 MG/ML VIAL (NEOSYNEPHRINE) ONE (19:46)
[2024-05-02] MEDS: LOSARTAN POTASSIUM 50 MG TABLET (COZAAR) GT SCH (20:58)
[2024-05-02] MEDS: APIXABAN 2.5 MG TABLET GT SCH (20:59)
[2024-05-02] MEDS: metFORMIN HCL 500 MG TABLET GT SCH (20:59)
[2024-05-02] MEDS: ATORVASTATIN 20 MG TABLET GT SCH (21:00)
[2024-05-02] MEDS: QUEtiapine FUMARATE 25 MG TABLET GT SCH (21:00)
[2024-05-02] MEDS: METOPROLOL TARTRATE 25 MG TABLET GT SCH (21:00)
[2024-05-02] MEDS: HYDROCORTISONE SOD SUCC 100 MG/2 ML VIAL IVP SCH (21:13)
[2024-05-02] MEDS ORDERED: DOPamine PREMIX 250 ML IV ONE (21:38)
[2024-05-02] MEDS ORDERED: EPINEPHrine HCL 1 MG/ML VIAL ONE (21:45)
[2024-05-02] MEDS ORDERED: EPINEPHrine HCL 10 MG in NS 240 ML IV PRN (21:45)
[2024-05-02] MEDS ORDERED: DOPamine PREMIX 250 ML IV PRN (21:45)
== END 2024-05-02 21:54 | DRG 871 ==
LOC: SED 09:17 → SIC 12:31
PROVIDERS: ADMIT Preventive Medicine Preventive Medicine/Occupational Environmental Medicine; ATTEND Preventive Medicine Preventive Medicine/Occupational Environmental Medicine
PROC: 02H633Z Insertion of Infusion Device into Right Atrium, Percutaneous Approach (ICD-10-PCS; principal; 2024-05-01)
PROC: B548ZZA Ultrasonography of Superior Vena Cava, Guidance (ICD-10-PCS; 2024-05-01)
PROC: 5A1945Z Respiratory Ventilation, 24-96 Consecutive Hours (ICD-10-PCS; 2024-05-01)
PROC: 0BH17EZ Insertion of Endotracheal Airway into Trachea, Via Natural or Artificial Opening (ICD-10-PCS; 2024-05-01)
DX: A41.9 Sepsis, unspecified organism (principal); J18.9 Pneumonia, unspecified organism; J69.0 Pneumonitis due to inhalation of food and vomit; J96.01 Acute respiratory failure with hypoxia; R65.21 Severe sepsis with septic shock; E87.0 Hyperosmolality and hypernatremia; N17.9 Acute kidney failure, unspecified; K94.23 Gastrostomy malfunction; K21.9 Gastro-esophageal reflux disease without esophagitis; I11.0 Hypertensive heart disease with heart failure; E11.65 Type 2 diabetes mellitus with hyperglycemia; E88.09 Other disorders of plasma-protein metabolism, not elsewhere classified; D75.839 Thrombocytosis, unspecified; E78.5 Hyperlipidemia, unspecified; Z79.84 Long term (current) use of oral hypoglycemic drugs; Z79.899 Other long term (current) drug therapy; Z79.01 Long term (current) use of anticoagulants; Z88.8 Allergy status to other drugs, medicaments and biological substances; Z86.73 Personal history of transient ischemic attack (TIA), and cerebral infarction without residual deficits
CPT/HCPCS: 36415; 36600; 71045; 80048; 80076; 82803; 82948; 83605; 84484; 85025; 85610; 85730; 87040; 87081; 92950; 93005; 94003; 94640; J0171; J0456; J0696; J1265; J1720; J2543; J2704; J3490; J7050; J7060